=== PATIENT | male | born 1955 | race Caucasian/White ===

== ENCOUNTER 2016-10-19 19:01 | Emergency (ER) | payer BC ==
[~2016-10-19] VITALS: Ht 182.9 cm; Wt 112.2 kg
[2016-10-19 19:14] VITALS: BP 144/92; PULSE 69; RESP 18; TEMP 98.2; O2SAT 96
[2016-10-19] MEDS ORDERED: LOSA100T2 PO (19:18)
[2016-10-19] MEDS ORDERED: LIPI10TA PO (19:18)
[2016-10-19] MEDS ORDERED: TETANUS/DIPHTHERIA TOXOID ADULT 0.5 ML VIAL IM ONE (19:45)
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
== END 2016-10-19 20:01 | disposition home or self-care (01) ==
LOC: PHEFT 19:01
DX: S80.811A Abrasion, right lower leg, initial encounter (principal); E11.9 Type 2 diabetes mellitus without complications; I10 Essential (primary) hypertension; K21.9 Gastro-esophageal reflux disease without esophagitis; Z72.0 Tobacco use; Z23 Encounter for immunization; W45.8XXA Other foreign body or object entering through skin, initial encounter; Y93.55 Activity, bike riding; Y99.8 Other external cause status
CPT/HCPCS: 90471; 90714